=== PATIENT | male | born 1965 | race Caucasian/White ===

== ENCOUNTER 2018-06-19 18:19 | Inpatient (IN) | payer MEDICAID ==
[2018-06-19 23:16] LABS: ADD MAN DIFF? NO
[2018-06-19 23:20] LABS: WHITE BLOOD COUNT 9.4 10^3/ul (4.8-10.8)
[2018-06-19 23:20] LABS: BASOPHILS % 0.4 % (0.0-2.0); EOSINOPHILS # 0.1 10^3/ul (0.0-0.5); EOSINOPHILS % 0.5 % (0.0-7.0); HEMATOCRIT 43.5 % (42.0-52.0); HEMOGLOBIN 14.8 g/dl (14.0-18.0); LYMPHOCYTES # 3.1 10^3/ul (0.8-2.9); LYMPHOCYTES % 33.2 % (15.0-51.0); MEAN CORPUSCULAR HEMOGLOBIN 31.7 pg (29.0-33.0); MEAN CORPUSCULAR VOLUME 93.1 fl (82.0-101.0); MONOCYTE # 0.9 10^3/ul (0.3-0.9); MONOCYTES % 9.8 % (0.0-11.0); NEUTROPHIL # 5.2 10^3/ul (1.6-7.5); NEUTROPHILS % 55.4 % (39.0-77.0); PLATELET COUNT 343 10^3/UL (140-415); RED BLOOD COUNT 4.67 10^6/ul (4.70-6.10); RED CELL DISTRIBUTION WIDTH 13.1 % (11.5-14.5)
[2018-06-19] MEDS: SOD CHLORIDE 0.9% 500 ML IV (23:26)
[2018-06-19] MEDS: ONDANSETRON 4 MG INJ IV (23:27)
[2018-06-19] MEDS: morphine 4 MG/ML VIAL IV (23:28)
[2018-06-19 23:38] LABS: ALANINE AMINOTRANSFERASE 107 IU/L (13-69); ALBUMIN 4.5 g/dl (3.3-4.9); ALBUMIN/GLOBULIN RATIO 1.18; ALKALINE PHOSPHATASE 94 IU/L (42-121); ANION GAP 15 (5-13); ASPARTATE AMINO TRANSFERASE 88 IU/L (15-46); BILIRUBIN,INDIRECT 0.3 mg/dl (0-1.1); BILIRUBIN,TOTAL 0.3 mg/dl (0.2-1.3); BLOOD UREA NITROGEN 5 mg/dl (7-20); CALCIUM 9.9 mg/dl (8.4-10.2); CARBON DIOXIDE 26 mmol/L (21-31); CHLORIDE 96 mmol/L (97-110); CREATININE 0.52 mg/dl (0.61-1.24); Estimated GFR > 60 mL/min (>60); GLUCOSE 240 mg/dl (70-220); LIPASE 106 U/L (23-300); SODIUM 137 mmol/L (135-144); TOTAL PROTEIN 8.3 g/dl (6.1-8.1)
[2018-06-19 23:50] LABS: TROPONIN-I < 0.012 ng/ml (0.000-0.120)
[2018-06-20] MEDS: CEFTRIAXONE 1 GM/50 ML (PMX) 50 ML IVPB ×3 (00:56→20:20)
[2018-06-20] MEDS ORDERED: ONDANSETRON 4 MG INJ IV (04:00)
[2018-06-20] MEDS ORDERED: NACL 0.9% 3 ML SYG IV (04:00)
[2018-06-20] MEDS ORDERED: HYDROCODONE/APAP (5/325) TAB PO ×2 (04:00)
[2018-06-20] MEDS ORDERED: ACETAMINOPHEN 325 MG TAB PO (04:00)
[2018-06-20] MEDS: SOD CHLORIDE 0.9% 1,000 ML IV ×2 (04:18→13:32)
[2018-06-20] MEDS ORDERED: GLUCOSE GEL 15 GRAM TUBE PO ×2 (06:30)
[2018-06-20] MEDS ORDERED: GLUCAGON 1 MG INJ IM (06:30)
[2018-06-20] MEDS ORDERED: DEXTROSE 50% 50 ML SYRINGE IV ×2 (06:30)
[2018-06-20] MEDS ORDERED: GLUCOSE GEL 15 GRAM TUBE BUCCAL (06:30)
[2018-06-20] MEDS: ENOXAPARIN 40 MG/0.4 ML SYG SC (08:48)
[2018-06-20] MEDS: INSULIN ASPART [NOVOLOG] 3 ML PEN SC ×4 (08:49→20:28)
[2018-06-20 09:59] LABS: ADD UMIC YES; UR ASCORBIC ACID NEGATIVE (NEGATIVE); UR BILIRUBIN (Dip) NEGATIVE (NEGATIVE); UR BLOOD (Dip) NEGATIVE (NEGATIVE); UR CLARITY CLEAR (CLEAR); UR COLOR YELLOW (YELLOW); UR GLUCOSE (Dip) 3+ mg/dL (NEGATIVE); UR KETONES (Dip) 1+ mg/dL (NEGATIVE); UR LEUKOCYTE ESTERASE (Dip) NEGATIVE Leu/ul (NEGATIVE); UR NITRITE (Dip) NEGATIVE (NEGATIVE); UR RBC 1 /HPF (0-5); UR SPECIFIC GRAVITY (Dip) 1.036 (1.003-1.030); UR TOTAL PROTEIN (Dip) 1+ mg/dl (NEGATIVE); UR UROBILINOGEN (Dip) 1+ mg/dL (NEGATIVE); UR WBC 9 /HPF (0-5)
[2018-06-20] MEDS: HYDROCODONE/APAP (10/325) TAB PO (19:27)
[2018-06-20] MEDS: DOCUSATE SODIUM 250 MG CAP PO (20:21)
[2018-06-21 05:10] LABS: ADD MAN DIFF? NO
[2018-06-21 05:19] LABS: WHITE BLOOD COUNT 7.6 10^3/ul (4.8-10.8)
[2018-06-21 05:19] LABS: BASOPHILS % 0.4 % (0.0-2.0); EOSINOPHILS # 0.1 10^3/ul (0.0-0.5); EOSINOPHILS % 1.8 % (0.0-7.0); HEMATOCRIT 36.9 % (42.0-52.0); HEMOGLOBIN 12.5 g/dl (14.0-18.0); LYMPHOCYTES # 2.9 10^3/ul (0.8-2.9); LYMPHOCYTES % 37.9 % (15.0-51.0); MEAN CORPUSCULAR HEMOGLOBIN 31.8 pg (29.0-33.0); MEAN CORPUSCULAR HGB CONC 33.9 g/dl (32.0-37.0); MEAN CORPUSCULAR VOLUME 93.9 fl (82.0-101.0); MEAN PLATELET VOLUME 10.4 fl (7.4-10.4); MONOCYTE # 0.8 10^3/ul (0.3-0.9); MONOCYTES % 9.9 % (0.0-11.0); NEUTROPHIL # 3.8 10^3/ul (1.6-7.5); NEUTROPHILS % 49.5 % (39.0-77.0); PLATELET COUNT 283 10^3/UL (140-415); RED BLOOD COUNT 3.93 10^6/ul (4.70-6.10); RED CELL DISTRIBUTION WIDTH 12.7 % (11.5-14.5)
[2018-06-21 05:24] LABS: HEMOGLOBIN A1C 11.5 % (0-5.9)
[2018-06-21 05:37] LABS: LACTIC ACID 1.1 mmol/L (0.5-2.0)
[2018-06-21 05:40] LABS: INR 0.95; PROTIME 12.8 Sec (11.9-14.9)
[2018-06-21 05:44] LABS: ALANINE AMINOTRANSFERASE 58 IU/L (13-69); ALBUMIN 3.3 g/dl (3.3-4.9); ALKALINE PHOSPHATASE 65 IU/L (42-121); ANION GAP 9 (5-13); ASPARTATE AMINO TRANSFERASE 40 IU/L (15-46); BILIRUBIN,INDIRECT 0.4 mg/dl (0-1.1); BILIRUBIN,TOTAL 0.4 mg/dl (0.2-1.3); BLOOD UREA NITROGEN 7 mg/dl (7-20); CALCIUM 8.7 mg/dl (8.4-10.2); CARBON DIOXIDE 27 mmol/L (21-31); CHLORIDE 100 mmol/L (97-110); CREATININE 0.51 mg/dl (0.61-1.24); Estimated GFR > 60 mL/min (>60); GLUCOSE 209 mg/dl (70-220); MAGNESIUM 1.9 mg/dl (1.7-2.5); PHOSPHORUS 3.3 mg/dl (2.5-4.9); POTASSIUM 3.7 mmol/L (3.5-5.1); SODIUM 136 mmol/L (135-144); TOTAL PROTEIN 6.6 g/dl (6.1-8.1)
[2018-06-21 05:44] LABS: LIPASE 98 U/L (23-300)
[2018-06-21] MEDS: CEFTRIAXONE 1 GM/50 ML (PMX) 50 ML IVPB (08:42)
[2018-06-21] MEDS: ENOXAPARIN 40 MG/0.4 ML SYG SC (08:44)
[2018-06-21] MEDS: INSULIN ASPART [NOVOLOG] 3 ML PEN SC ×5 (08:45→17:55)
[2018-06-21] MEDS ORDERED: INSULIN LISPRO 100 UNIT/ML VIAL SC (11:10)
[2018-06-21] MEDS ORDERED: INSULIN GLARGINE [LANTus] (100 UNITS/ML) SYG SC (20:00)
== END 2018-06-21 18:40 | disposition home or self-care (01) | DRG 690 ==
LOC: E/R 18:19 → MS1 06-20 00:48
DX: N12 Tubulo-interstitial nephritis, not specified as acute or chronic (principal); E11.9 Type 2 diabetes mellitus without complications; K76.0 Fatty (change of) liver, not elsewhere classified; E88.81 Metabolic syndrome and other insulin resistance
CPT/HCPCS: 36415; 71045; 74176; 74181; 80053; 81001; 82962; 83036; 83605; 83690; 83735; 84100; 84443; 84484; 85025; 85610; 87040; 87086; 93005; 96374; 96375; 99285-25